=== PATIENT | female | born 1940 | race Caucasian/White ===

== ENCOUNTER 2018-05-28 13:17 | Day surgery (SDC) | payer MEDICARE, OTHER ==
[~2018-05-28] VITALS: Ht 154.9 cm; Wt 93.2 kg
[~2018-05-28 13:17] MED LIST: APIX5TAB PO; BUDE0.5A3 NEB; CITA-106 PO; DOCU250C91 PO; FURO20 PO; LISI-660 PO; PANT40TA25 PO; POTA10TA PO; SITA1TAB2 PO; SODIUM CHLORIDE 0.9% 1,000 ML IV ONE; TRAZ-220 PO
[2018-05-28] MEDS ORDERED: PROPOFOL 1% 20 ML VIAL IVP ONE (13:18)
[2018-05-28] MEDS ORDERED: LIDOCAINE/PF 2% 5 ML VIAL IM ONE (13:18)
[2018-05-28 14:13] LABS: GLUCOMETER DEV NAME(LOC) SDS 5; GLUCOSE,POINT OF CARE 113 MG/DL (70-110)
== END 2018-05-28 16:45 | disposition home or self-care (01) ==
LOC: SURGERY 13:17
PROVIDERS: ATTEND Internal Medicine Gastroenterology
DX: D12.4 Benign neoplasm of descending colon (principal); K57.30 Diverticulosis of large intestine without perforation or abscess without bleeding; K64.0 First degree hemorrhoids; M19.90 Unspecified osteoarthritis, unspecified site; E11.22 Type 2 diabetes mellitus with diabetic chronic kidney disease; I13.0 Hypertensive heart and chronic kidney disease with heart failure and stage 1 through stage 4 chronic kidney disease, or unspecified chronic kidney disease; N18.9 Chronic kidney disease, unspecified; I50.9 Heart failure, unspecified; J44.9 Chronic obstructive pulmonary disease, unspecified; I25.10 Atherosclerotic heart disease of native coronary artery without angina pectoris; K21.9 Gastro-esophageal reflux disease without esophagitis; E66.9 Obesity, unspecified; K74.60 Unspecified cirrhosis of liver; Z87.01 Personal history of pneumonia (recurrent); Z86.73 Personal history of transient ischemic attack (TIA), and cerebral infarction without residual deficits; Z79.01 Long term (current) use of anticoagulants; Z79.891 Long term (current) use of opiate analgesic; Z90.710 Acquired absence of both cervix and uterus; Z87.09 Personal history of other diseases of the respiratory system; Z79.84 Long term (current) use of oral hypoglycemic drugs; Z68.38 Body mass index [BMI] 38.0-38.9, adult; Z79.899 Other long term (current) drug therapy; Z98.890 Other specified postprocedural states
CPT/HCPCS: 45385; 82962; 88305; 93005; C1769; J2704; J3490; J7030